=== PATIENT | male | born 1995 ===

== ENCOUNTER 2022-09-22 10:03 | Emergency (ER) | payer OTHER ==
[~2022-09-22] VITALS: Ht 180.3 cm; Wt 81.8 kg
[2022-09-22] MEDS ORDERED: HYDROCODONE/ACETAMINOPHEN 5-325 MG TABLET PO ONE (12:00)
[2022-09-22] MEDS ORDERED: LIDOCAINE 1% 10 ML VIAL SQ ONE (12:00)
[2022-09-22] MEDS ORDERED: CEPHALEXIN MONOHYDRATE 500 MG CAPSULE PO ONE (12:00)
[2022-09-22] MEDS ORDERED: IBUP-2071 PO (12:54)
[2022-09-22] MEDS ORDERED: CEPH-558 PO (12:54)
[2022-09-22] MEDS ORDERED: GABA-1181 PO (12:54)
[2022-09-22] MEDS ORDERED: BACITRACIN 0.9 GM PACKET OINTMENT TP ONE ×2 (13:00)
[2022-09-22] MEDS ORDERED: MUPI1OIN5 TP (13:03)
[2022-09-22 13:25] VITALS: BP 145/87
== END 2022-09-22 13:45 | disposition home or self-care (01) ==
LOC: EMS 10:08
DX: L60.0 Ingrowing nail (principal); F32.9 Major depressive disorder, single episode, unspecified; F41.9 Anxiety disorder, unspecified; F15.10 Other stimulant abuse, uncomplicated; F17.210 Nicotine dependence, cigarettes, uncomplicated; L03.031 Cellulitis of right toe
CPT/HCPCS: 99285; 11750; 73620; J3490